=== PATIENT | male | born 1985 | race Caucasian/White ===

== ENCOUNTER 2018-08-29 08:04 | Day surgery (SDC) | payer OTHER ==
[2018-08-29] MEDS ORDERED: Sodium Chloride 0.9% 10 ML Syringe FLUSH PRN (08:16)
[2018-08-29] MEDS ORDERED: Lidocaine 1%/Sod Bicarbonate in NS 8.4% 1 ML Syringe IDERM PRN (08:16)
[2018-08-29] MEDS ORDERED: Ondansetron 4 MG/2 ML SDV ONE (08:26)
[2018-08-29] MEDS ORDERED: Propofol 200 MG/20 ML SDV ONE ×3 (08:26→09:21)
[2018-08-29] MEDS ORDERED: Lidocaine 1% 0 ML ONE (08:26)
[2018-08-29] MEDS ORDERED: Midazolam 1 MG/ML 2 ML SDV ONE ×2 (08:26→08:27)
[2018-08-29] MEDS ORDERED: fentaNYL 100 MCG/2 ML SDV ONE (08:27)
[2018-08-29] MEDS ORDERED: Lidocaine 1% 4 ML ONE (08:29)
[2018-08-29] MEDS ORDERED: Lidocaine 1% 2 ML ONE (08:30)
[2018-08-29] MEDS ORDERED: Lactated Ringers 1,000 ML IV SCH (08:30)
--- NOTE | 2018-08-29 08:31 | PCM.PREANE ---
Preanesthetic Assessment - Anesthesia/Transfusion/Family Hx Anesthesia History: Prior Anesthesia Without Reaction Family History of Anesthesia Reaction: No Transfusion History: No Prior Transfusion(s) Intubation History: Unknown - Review of Systems General: No Symptoms Pulmonary: No Symptoms Cardiovascular: No Symptoms (elevated BP on no medications), Lightheadedness ( positional changes) Gastrointestinal: No Symptoms (History of gerd) Neurological: No Symptoms (History of vertigo and motion sickness), Headache ( History of migraines) Other: Reports: None (Anemia: Hgb= 10.9), Sinus Problem (History of sinus infections) - Physical Assessment NPO Status Date: 08/28/18 NPO Status Time: 23:30 Pulse: 88 O2 Sat by Pulse Oximetry: 97 Respiratory Rate: 16 Blood Pressure: 132/84 Temperature: 36.3 C Height: 1.91 m Weight: 160.572 kg ASA Class: 2 Mental Status: Alert & Oriented x3 Airway Class: Mallampati = 2 Dentition: Reports: Normal Dentition, Caries Thyro-Mental Finger Breadths: 3 Mouth Opening Finger Breadths: 3 ROM/Head Extension: Full Lungs: Clear to Auscultation, Normal Respiratory Effort Cardiovascular: Regular Rate, Regular Rhythm, No Murmurs - Lab Values: Labs reviewed and noted and within acceptable ranges to proceed with scheduled procedure. - Allergies Allergies/Adverse Reactions: Allergies Allergy/AdvReac Type Severity Reaction Status Date / Time cefaclor [From Ceclor] Allergy Hives Verified 08/26/18 14:02 c-clor Allergy Hives Uncoded 08/26/18 14:02 - Anesthesia Plan Pre-Op Medication Ordered: None - Acknowledgements Anesthesia Type Planned: MAC Pt an Appropriate Candidate for the Planned Anesthesia: Yes Alternatives and Risks of Anesthesia Discussed w Pt/Guardian: Yes Pt/Guardian Understands and Agrees with Anesthesia Plan: Yes PreAnesthesia Questionnaire - Past Health History Medical/Surgical History: Denies Medical/Surgical History HEENT History: Reports: None Cardiovascular History: Reports: None Respiratory History: Reports: None Gastrointestinal History: Reports: None Genitourinary History: Reports: None COURT STENOGRAPHER History: Reports: None Musculoskeletal History: Reports: None Neurological History: Reports: Migraines Psychiatric History: Reports: None Endocrine/Metabolic History: Reports: None Hematologic History: Reports: None Immunologic History: Reports: None Oncologic (Cancer) History: Reports: None Dermatologic History: Reports: Other (See Below) Other Dermatologic History: skin tag removal - Past Surgical History Head Surgeries/Procedures: Reports: None HEENT Surgical History: Reports: Myringotomy w Tube(s) Cardiovascular Surgical History: Reports: None Respiratory Surgical History: Reports: None GI Surgical History: Reports: Appendectomy Female Surgical History: Reports: None Male Surgical History: Reports: None Endocrine Surgical History: Reports: None Neurological Surgical History: Reports: None Musculoskeletal Surgical History: Reports: None Oncologic Surgical History: Reports: None - SUBSTANCE USE Smoking Status *Q: Never Smoker Recreational Drug Use History: No - HOME MEDS Home Medications: Home Meds Acetaminophen/Caffeine [Excedrin Tension Headache Cplt] 2 tab PO Q6H PRN [History] - CURRENT (IN HOUSE) MEDS Current Meds: Current Medications Lactated Ringer's (Ringers, Lactated) 1,000 mls @ 125 mls/hr IV ASDIRECTED ALEX Lidocaine/Sodium Bicarbonate (Buffered Lidocaine 1% In Ns 8.4%) 0.25 ml IDERM ONETIME PRN PRN Reason: Prior to IV Start Sodium Chloride (Saline Flush) 10 ml FLUSH ASDIRECTED PRN PRN Reason: Keep Vein Open
--- NOTE | 2018-08-29 09:41 | PCM.OPNOTE ---
- General Post-Op/Procedure Note Date of Surgery/Procedure: 08/29/18 Pre Op Diagnosis: anemia and rectal bleeding Post-Op Diagnosis: Same Anesthesia Technique: MAC Primary Surgeon: Randall Berkowitz EBL in mLs: 0 Complications: None Condition: Good
--- NOTE | 2018-08-29 09:50 | PCM48HPAN ---
Post Anesthesia Note - EVALUATION WITHIN 48HRS OF ANESTHETIC Vital Signs in Normal Range: Yes Patient Participated in Evaluation: Yes Respiratory Function Stable: Yes Airway Patent: Yes Cardiovascular Function Stable: Yes Hydration Status Stable: Yes Pain Control Satisfactory: Yes Nausea and Vomiting Control Satisfactory: Yes Mental Status Recovered: Yes
[2018-08-29 10:37] VITALS: BP 125/87
--- NOTE | 2018-08-30 06:43 | OR ---
DATE OF OPERATION: 08/29/2018 SURGEON: Randall Berkowitz MD PREOPERATIVE DIAGNOSIS: Anemia. POSTOPERATIVE DIAGNOSIS: Anemia. OPERATION PERFORMED: Esophagogastroduodenoscopy. FINDINGS: A small sliding hiatal hernia. Some chronic esophagitis with GE junction located at 42 cm. The Z-line was sharp. The second portion of the duodenum, duodenal bulb, pyloric channel, and antrum, body, cardia, and fundus of the stomach were unremarkable. J-maneuver showed some mild incompetence of the hiatus. Rest of the esophagus was normal. ANESTHESIA: Done under IV sedation. DESCRIPTION OF PROCEDURE: The patient was taken to the endoscopy room, placed in the supine position, connected to monitoring equipment, given IV sedation, placed in the left lateral position. Bite block was inserted and video Olympus gastroscope placed in the posterior oropharynx under direct vision and threaded past the cricopharyngeus, down the esophagus, into the stomach. The stomach was insufflated and the scope passed through the pylorus and second portion of the duodenum and slowly withdrawn showing normal second portion of the duodenum, duodenal bulb, and pyloric channel. Antrum, body, cardia of the stomach, and fundus were reviewed. J-maneuver was performed showing the above findings. Scope withdrawn to the GE junction. The above noted was found. Rest of the esophagus viewed as the scope withdrawn was unremarkable. The patient tolerated the procedure. IV sedation will be continued for colonoscopy. ESTIMATED BLOOD LOSS: MMODAL /[id number]
--- NOTE | 2018-08-30 06:46 | OR ---
DATE OF OPERATION: 08/29/2018 SURGEON: Randall Berkowitz MD PREOPERATIVE DIAGNOSIS: 1. Melena. 2. Rectal bleeding. POSTOPERATIVE DIAGNOSIS: 1. Melena. 2. Rectal bleeding. OPERATION PERFORMED: Colonoscopy to cecum. FINDINGS: Mildly inflamed internal hemorrhoids. There were no angiodysplasias, neoplasias, large tumor masses, ulcerations, or diverticulum. Hemorrhoids were not engorged. ANESTHESIA: Procedure done under IV sedation. DESCRIPTION OF PROCEDURE: The patient was taken to the endoscopy room and having been connected to monitoring equipment and given IV sedation for upper GI endoscopy, this was continued for colonoscopy. Placed in the left lateral position. Perianal area was unremarkable. Rectal exam showed good sphincter tone. A video Olympus colonoscope was then introduced into the rectum and threaded up without problem to the cecum, where the cecal anatomy and the ileocecal valve were noted. Prep was excellent. [place] Cleansing Score grade A, and the scope was slowly withdrawn showing the cecum, ascending colon, transverse colon, descending colon, sigmoid colon, and rectum. Retroflexed view was done. Following this, an anoscope was inserted, demonstrated mildly mild inflammation of the hemorrhoids. The patient tolerated the procedure, sent to recovery room in a stable condition and will be followed up in the clinic. ESTIMATED BLOOD LOSS: MMODAL /[id number]
== END 2018-08-29 10:32 | disposition home or self-care (01) ==
LOC: JD.SDS 08:04
PROVIDERS: ATTEND Surgery
DX: K92.1 Melena (principal); K64.9 Unspecified hemorrhoids; D64.9 Anemia, unspecified; K21.9 Gastro-esophageal reflux disease without esophagitis; G43.909 Migraine, unspecified, not intractable, without status migrainosus; Z88.1 Allergy status to other antibiotic agents
CPT/HCPCS: 43235; 45378; J2001; J2405; J2704; J3010; J7120; 00813; J2250